=== PATIENT | male | born 2000 | race Caucasian/White ===

== ENCOUNTER 2024-08-11 15:09 | Emergency (ER) | payer OTHER ==
[2024-08-11] MEDS: Lidocaine 1% 10 ML MDV INJECT ONE (15:24)
== END 2024-08-11 15:46 | disposition home or self-care (01) ==
LOC: VM.ED 15:09
DX: S01.511A Laceration without foreign body of lip, initial encounter (principal); W01.198A Fall on same level from slipping, tripping and stumbling with subsequent striking against other object, initial encounter; Y99.0 Civilian activity done for income or pay
CPT/HCPCS: 12011; 99282; J3490